=== PATIENT | female | born 1930 | race Caucasian/White ===

== ENCOUNTER 2020-02-12 09:32 | Day surgery (SDC) | payer OTHER ==
[2020-02-11 13:58] VITALS: BMI 19.7
[2020-02-12] MEDS ORDERED: PROPOFOL 20 ML ONE (13:05)
[2020-02-12] MEDS ORDERED: ceFAZolin 2 GRAM PREMIX BAG IVPB ONE (13:35)
[2020-02-12] MEDS ORDERED: LIDOCAINE HCL 2% JELLY 10 ML CARTRIDGE ONE (13:40)
--- NOTE | 2020-02-12 14:03 | OP ---
Operative Note - Note: Operative Date: 02/12/20 Pre-Operative Diagnosis: gross ,totel hematuria and rec. uti Operation: cysto, urethral dilation ,bladder biopsy and bladder fulgeration Findings: urethral stricture, bladder lesion, bladder trabeculation Post-Operative Diagnosis: Same as Pre-op Surgeon: Shellie Tong Anesthesia: General Specimens Removed: bladder tissue, urine Drains & Tubes with Location: 20f-10cc zamora Drains, Volume Out (mls): 0 Blood Volume Replaced (mls): 0 Fluid Volume Replaced (mls): 0 Operative Report Dictated: Yes
[2020-02-12] MEDS ORDERED: ACETAMINOPHEN 325 MG TABLET (FP) PO PRN (14:04)
[2020-02-12] MEDS ORDERED: ACETAMINOPHEN 325 MG TABLET (FP) ONE (14:41)
--- NOTE | 2020-02-12 16:10 | CONS ---
DATE OF CONSULTATION: 02/12/2020 Patient is an 89-year-old female with history of intermittent gross hematuria over the past several months. The patient has history of hemorrhoids as well as constipation. Also has history of depression with psychosis. She denies alcoholism or tobacco. She is a resident of a care home. She is on metoprolol, Zyprexa, Lexapro, and Abilify. She denies any allergies. Her COVID screening has been negative. She does have history of mild hypertension as well as diabetes. EXAMINATION: Presently, her abdomen is soft. There is no CVA tenderness. Extremities revealed no cyanosis or edema. IMPRESSION AT PRESENT: History of gross intermittent total painless hematuria. PLAN: Cystoscopy, possible bladder biopsy, possible fulguration. SCARLETT MILLER M.D. [id number]
[2020-02-12 16:56] VITALS: BP 131/51; PULSE 58; TEMP 97.8
--- NOTE | 2020-02-13 19:20 | OP ---
DATE OF OPERATION: DATE OF DICTATION: 02/12/2020 PREOPERATIVE DIAGNOSIS: The patient is an 89-year-old female with history of recurrent gross total painless hematuria. POSTOPERATIVE DIAGNOSIS: Meatal stenosis, trabeculated bladder, and bladder lesion. OPERATIVE PROCEDURE: Cystoscopy, urethral dilation, bladder biopsy, and bladder fulguration. ANESTHESIA: General. DESCRIPTION OF PROCEDURE: Under above stated anesthesia, patient was prepped and draped in the usual sterile manner. She was placed in the dorsal lithotomy position. Cystoscopy revealed a grade 3-4 trabeculation of the bladder. There appeared to be a hyperemic raised area in the right lateral wall of the bladder. This was bleeding. No other lesions were seen. The area was biopsied. The biopsied area was fulgurated for hemostasis. No active bleeding was noted. No other lesions were seen. Ureteral orifices were within normal limits with efflux of clear urine. Dome and bladder hernandez were within normal limits with efflux of clear urine. Afterwards, the urethra was dilated to 30 Hebrew without difficulty or bleeding. A 20 [address] was kept in place. The patient tolerated the procedure well. She returned to the recovery room in good condition. Madi [id number]
--- NOTE | 2020-02-14 19:37 | PATH ---
Surgical Pathology Report Patient Name: MARÍA ARAUJO [facility]. Rec. #: [id number] /Age/Gender: 1930 (Age: 89) / F Account: [id number] Location: [facility] SUR[facility] Taken: 02/12/2020 Received: 02/13/2020 Reported: 02/14/2020 Physicians: Shellie Tong M.D. Specimen(s) Received BLADDER BIOPSY Clinical History Hematuria Final Diagnosis BLADDER, BIOPSY, FULGURATION: PREDOMINANTLY DENUDED BLADDER MUCOSA WITH MARKED ACUTE AND CHRONIC CYSTITIS. Comment: See concurrent cytology ([id number]). Electronically Signed Katheryn Mcdonough M.D. Gross Description Received in formalin, labeled "bladder biopsy" are 2 wallace, irregular portions of soft tissue measuring 0.4 and 0.5 cm. in greatest dimension. The specimens are submitted in toto in one cassette. /02/13/2020 saudi/02/13/2020
--- NOTE | 2020-02-14 19:39 | PATH ---
Cytology Non-Gynecological Report Patient Name: MARÍA ARAUJO [facility]. Rec. #: [id number] /Age/Gender: 1930 (Age: 89) / F Account: [id number] Location: [facility] SURGICAL Taken: 02/12/2020 Received: 02/12/2020 Reported: 02/14/2020 Physicians: Shellie Tong M.D. Specimen(s) Received URINE Clinical History Hematuria Final Diagnosis URINE FOR CYTOLOGY: SATISFACTORY FOR EVALUATION. NEGATIVE FOR HIGH GRADE UROTHELIAL CARCINOMA. SUSPECT URINARY TRACT INFECTION. RARE UROTHELIAL CELLS AND RARE RED BLOOD CELLS PRESENT. MANY NEUTROPHILS AND BACTERIA PRESENT. Comment: See concurrent bladder biopsy ([id number]). Electronically Signed Katheryn Mcdonough M.D. Gross Description Approximately 30 cc of cloudy yellow fluid received fresh. One cytofunnel prepared and Pap stained.
== END 2020-02-12 16:35 | disposition home or self-care (01) ==
LOC: JASU-SURG 09:32
PROVIDERS: ATTEND Urology
PROC: 0T7D8ZZ Dilation of Urethra, Via Natural or Artificial Opening Endoscopic (ICD-10-PCS; 2020-02-12)
PROC: 0T5B8ZZ Destruction of Bladder, Via Natural or Artificial Opening Endoscopic (ICD-10-PCS; principal; 2020-02-12 12:00)
DX: N30.21 Other chronic cystitis with hematuria (principal); N35.92 Unspecified urethral stricture, female; N32.89 Other specified disorders of bladder
CPT/HCPCS: 87086; 87186; 88108; 88305-TC; 94760